=== PATIENT | female | born 1950 | race Caucasian/White ===

== ENCOUNTER 2018-02-05 11:56 | Day surgery (SDC) | payer OTHER ==
[~2018-02-05] VITALS: Ht 167.6 cm; Wt 115.6 kg
[~2018-02-05 11:56] MED LIST: AMOXICILLIN875 MG PO; BYSTOLIC2.5 MG PO; CALCIUM 500 +1 EACH PO; CALTRATE 6001 TABLE1 PO; CENTRUM SILVER1 EAC3 PO; CLEOCIN300 MG PO; DYNAPEN500 MG PO; FLONASE16 G1 BOTH NARES; HYDROCHLOROTH12.5 M3 PO; HYDROCODON-ACE1 EAC7 PO; HYDROXYZINE PAM25 MG PO; INHALER PO; LASIX40 MG PO; LEVAQUIN500 MG PO; LEVOFLOXACIN500 MG PO; LEVOTHYROXINE88 MCG PO; LIPITOR40 MG PO; LO-DOSE ASPIRIN81 M2 PO; NORCO 5/3251 TABLET PO; ST. JOSEPH ASPI81 MG PO; ZANTAC150 MG PO; ZOFRAN ODT4 MG PO
[2018-02-05 12:32] VITALS: BP 165/70
[2018-02-05] MEDS ORDERED: HYDROCODON-ACE1 EAC7 PO (15:11)
[2018-02-05 16:15] VITALS: BP 159/72
[2018-02-05 16:49] VITALS: BP 169/70
== END 2018-02-05 16:51 | disposition home or self-care (01) ==
LOC: SDC 11:56
PROC: 0HJT0ZZ Inspection of Right Breast, Open Approach (ICD-10-PCS; principal; 2018-02-05)
DX: C50.911 Malignant neoplasm of unspecified site of right female breast (principal); I10 Essential (primary) hypertension; E03.9 Hypothyroidism, unspecified; E78.00 Pure hypercholesterolemia, unspecified; E66.9 Obesity, unspecified; Z68.41 Body mass index [BMI] 40.0-44.9, adult; Z79.82 Long term (current) use of aspirin
CPT/HCPCS: 88307; 88341 TC; 88342 TC; 88360; J0131; J0690; J1100; J1170; J1885; J2250; J2405; S0020

== ENCOUNTER 2018-03-12 08:07 | Day surgery (SDC) | payer OTHER ==
[~2018-03-12] VITALS: Ht 167.6 cm; Wt 115.6 kg
[~2018-03-12 08:07] MED LIST changes: -CALCIUM 500 +1 EACH PO; +CALTRATE PLUS1 EACH PO; +CLARITIN,ALAVAR10 MG PO; +LEVOTHYROXINE100 MCG PO; +MOBIC7.5 MG PO; +TOPROL XL25 MG PO; +VITAMIN D31000 UNIT PO
[2018-03-12 08:31] VITALS: BP 136/62
[2018-03-12] MEDS ORDERED: HYDROCODON-ACE1 EAC7 PO (13:39)
[2018-03-12 15:00] VITALS: BP 188/79
[2018-03-12 15:41] VITALS: BP 174/76
== END 2018-03-12 15:48 | disposition home or self-care (01) ==
LOC: NUC 08:07 → SDC 08:07 → NUC 10:00 → SDC 10:00
PROC: 07B50ZX Excision of Right Axillary Lymphatic, Open Approach, Diagnostic (ICD-10-PCS; principal; 2018-03-12)
DX: C50.111 Malignant neoplasm of central portion of right female breast (principal); Z17.0 Estrogen receptor positive status [ER+]; E78.00 Pure hypercholesterolemia, unspecified; E03.9 Hypothyroidism, unspecified; E66.9 Obesity, unspecified; Z68.41 Body mass index [BMI] 40.0-44.9, adult; I10 Essential (primary) hypertension; Z79.82 Long term (current) use of aspirin; Z88.5 Allergy status to narcotic agent; Z88.1 Allergy status to other antibiotic agents; Z80.3 Family history of malignant neoplasm of breast; Z80.49 Family history of malignant neoplasm of other genital organs; Z81.1 Family history of alcohol abuse and dependence; Z82.3 Family history of stroke
CPT/HCPCS: 78195; 78999; 88305; A9541; J0690; J1100; J2250; J2405; J3010; S0020